=== PATIENT | female | born 1995 | race Caucasian/White ===

== ENCOUNTER 2016-08-29 06:30 | Day surgery (SDC) | payer OTHER ==
[2016-08-21 11:10] LABS: ANION GAP 7 mEq/L (8-16); CALCIUM 9.8 mg/dL (8.5-10.4); CARBON DIOXIDE 26 mEq/l (22-31); CHLORIDE 105 mEq/L (97-110); CREATININE 0.7 mg/dL (0.6-1.0); GLOMERULAR FILTRATION RATE > 60; GLUCOSE 83 mg/dL (70-100); POTASSIUM 4.8 mEq/L (3.5-5.2); SODIUM 138 mEq/L (134-144)
[2016-08-29] MEDS ORDERED: LIDOCAINE 1% 30 ML SDV ONE (07:02)
[2016-08-29] MEDS ORDERED: LIDOCAINE 1% 2 ML INJ ONE (07:15)
[2016-08-29] MEDS ORDERED: LR 1,000 ML IV ONE (07:41)
[2016-08-29] MEDS ORDERED: LIDOCAINE 1% 5 ML SDV ID PRN (07:41)
[2016-08-29] MEDS ORDERED: MIDAZOLAM 2 MG/2 ML VIAL ONE (07:58)
[2016-08-29] MEDS ORDERED: fentaNYL 100 MCG/2 ML INJ ONE (08:02)
[2016-08-29] MEDS ORDERED: PROPOFOL/EMULSION 500 MG/50 ML BOTTLE IV ONE (08:02)
[2016-08-29] MEDS ORDERED: ONDANSETRON 4 MG/2 ML VIAL ONE (08:15)
[2016-08-29] MEDS ORDERED: LIDOCAINE 2% 5 ML SDV ONE (08:15)
[2016-08-29] MEDS ORDERED: DEXAMETHASONE 4 MG/ML VIAL ONE (08:15)
--- NOTE | 2016-08-29 09:53 | GOP ---
[f rep st] OPERATIVE REPORT DATE OF OPERATION: SURGEON: Rose Levine MD ANESTHESIA: General with LMA. ANESTHESIOLOGIST: Tee Madison MD. 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 PROCEDURE PERFORMED: Hymenectomy. FINDINGS: Again a very narrow introital opening with a very thickened hymen starting from about 2 o 'clock all the way around to 10 o'clock. ESTIMATED BLOOD LOSS: Minimal. DESCRIPTION OF PROCEDURE: With informed consent signed, patient taken to the operating room, placed under general anesthesia, placed in low dorsal lithotomy position. Prepped and draped in usual arnaud rile fashion. Hymenal area was injected with 1% lidocaine, approximately 8 cc in 3 different sites. Then a small Allis was placed at 3 o'clock and at 9 o'clock on the hymenal rim, and a 15 blade sca lpel used to resect the excess hymenal tissue. Then a pediatric speculum placed into the vagina, an d the vaginal introitus tolerated this well. Cervix was visualized and noted to be normal. Then 4 interrupted 4-0 Vicryl sutures placed at 3 o'clock, 6 o'clock, 8 o'clock, and 9 o'clock for hemostas is, and patient then placed in the supine position, awakened in operating room, taken to recovery ro om in stable condition, tolerated procedure well. INDICATIONS FOR PROCEDURE: Patient is a 21-year-old who presented as a new patient in July 2016 stating that she was unable to place tampons, and she has not been able to tolerate a pelvic exam. On examination, was noted to have a very narrow vaginal opening, probably less than 3-4 mm and a ve ry thickened hymen. Patient desires definitive treatment for this. COMPLICATIONS: None. /[id number]/MODL
== END 2016-08-29 10:20 | disposition home or self-care (01) ==
LOC: FSGY 06:30
PROVIDERS: ATTEND Obstetrics & Gynecology Gynecology
PROC: 0UBKXZZ Excision of Hymen, External Approach (ICD-10-PCS; principal; 2016-08-29 08:00)
DX: Q52.3 Imperforate hymen (principal)
CPT/HCPCS: J1100; J2250; J2405; J2704; J3010